=== PATIENT | female | born 1980 ===

== ENCOUNTER → 2019-03-23 | Outpatient (CLI) | payer MEDICAID ==
[2019-03-23 09:23] VITALS: BP 113/67; PULSE 68; TEMP 98.2; BMI 43.9
--- NOTE | 2019-03-23 09:41 | P.HPBAR ---
Bariatric H&P - History & Physicial H&P Date: 03/23/19 History & Physicial: Visit/CC: initial consult Patient initial contact: Initial weight: Initial weight in pounds: Height: 4 ft 11.75 in Initial BMI: Last weight: Current weight: 101.106 kg Current weight in pounds: 222.90 Current BMI: 43.9 [place] body weight (based on NIH guidelines): 44.792 kg Excess body weight loss: The patient is a 38 year-old F who presents for Bariatric Assessment. HPI: She is looking into the sleeve gastrectomy. Highest weight at present. She has tried Adipex, Isogenex for weight loss. She lost down to 138 pounds of 45 pounds and she has regained her weight. Her mother and sister also has trouble. She has occassional heartburn. No gallbladder. She in the past had pancreatitis with Amylase and Lipase of 2000. She comes from [place]. Has complete hysterectomy. No stomach or esophageal cancer. ABDOMEN ASSESSMENT: 1. Morbid obesity PLAN: 1. She is looking into the sleeve 2. Needs labs 3. Bilateral edema and lower back Past Medical History Past Medical History: Sleep Apnea/CPAP/BIPAP Additional Past Medical History / Comment(s): varicose veins History of Any Multi-Drug Resistant Organisms: None Reported Past Surgical History: Section, Cholecystectomy, Hysterectomy Additional Past Surgical History / Comment(s): c section x 2 varicose vein surgery Past Anesthesia/Blood Transfusion Reactions: No Reported Reaction Past Psychological History: Anxiety Smoking Status: Former smoker Past Alcohol Use History: None Reported Additional Past Alcohol Use History / Comment(s): quit 2008 Past Drug Use History: None Reported Surgical - Exam Vital Signs Temp Pulse BP 98.2 F 68 113/67 03/23/19 09:15 03/23/19 09:15 03/23/19 09:15 Bariatric Checklist Checklist: Plan: Checklist: EGD: 1. Hiatal hernia: 2. H. Pylori: HgbA1c: Vitamin D: Smoking: Former smoker Primary care physician referral: dr acosta Psychiatry clearance: Cardiology clearance: Sleep study: Diet journal: VTE risk score: VTE risk level: Rehab needs at discharge:
[2019-03-23 10:56] LABS: HCT 40.8 % (34.0-46.0); HGB 13.5 gm/dL (11.4-16.0); MCH 29.6 pg (25.0-35.0); MCHC 33.1 g/dL (31.0-37.0); MCV 89.6 fL (80.0-100.0); Mean Platelet Volume 7.6; Platelet Count 250 k/uL (150-450); RBC 4.55 m/uL (3.80-5.40); RDW 13.4 % (11.5-15.5); WBC 7.8 k/uL (3.8-10.6)
[2019-03-23 11:01] LABS: INR 0.9 (<1.2); Partial Thromboplastin Time 25.2 sec (22.0-30.0); Prothrombin Time 9.8 sec (9.0-12.0)
[2019-03-23 17:20] LABS: Albumin 4.3 g/dL (3.80-4.90); Albumin/Globulin Ratio 2.15 (1.60-3.17); Anion Gap 5.4 mmol/L (4.00-12.00); Carbon Dioxide 26.6 mmol/L (21.6-31.8); Iron Saturation 32.84 (12.00-45.00); LDL Cholesterol,Calculated 74.8 mg/dL (0.0-131.0); Magnesium 1.8 mg/dL (1.5-2.4); Total Bilirubin 0.4 mg/dL (0.3-1.2); Total Protein 6.3 g/dL (6.2-8.2); VLDL Calculation 20.2 mg/dL (5.00-40.00)
[2019-03-23 17:31] LABS: Vitamin D 25 Hydroxy 21.3 ng/mL (30.0-100.0)
[2019-03-23 17:35] LABS: Folate, Serum 9.4 ng/mL
[2019-03-23 17:47] LABS: Parathyroid Hormone Intact 57.2 pg/mL (14.0-72.0)
[2019-03-23 18:57] LABS: Hemoglobin A1C 4.9 % (4.0-6.0)
[2019-03-24 12:13] LABS: Zinc, Serum 77 ug/dL (60-130)
== END | disposition home or self-care (01) ==
LOC: BARWHC3 08:57
PROVIDERS: ATTEND Surgery Plastic and Reconstructive Surgery
DX: E66.01 Morbid (severe) obesity due to excess calories (principal); E21.1 Secondary hyperparathyroidism, not elsewhere classified; E89.1 Postprocedural hypoinsulinemia; D50.9 Iron deficiency anemia, unspecified; K90.9 Intestinal malabsorption, unspecified; E55.9 Vitamin D deficiency, unspecified; K76.9 Liver disease, unspecified; N19 Unspecified kidney failure; K50.90 Crohn's disease, unspecified, without complications; Z68.41 Body mass index [BMI] 40.0-44.9, adult; Z87.891 Personal history of nicotine dependence; Z90.49 Acquired absence of other specified parts of digestive tract
CPT/HCPCS: 80053; 80061; 82306; 82525; 82607; 82728; 82746; 83036; 83540; 83550; 83735; 83970; 84100; 84134; 84255; 84425; 84443; 84590; 84630; 85027; 85610; 85730; 93005; 99211

== ENCOUNTER 2019-06-12 10:58 | Day surgery (SDC) | payer MEDICAID ==
[2019-06-08 11:09] VITALS: BMI 44.4
--- NOTE | 2019-06-12 07:05 | P.GSHP ---
History of Present Illness H&P Date: 06/12/19 CHIEF COMPLAINT: GERD HISTORY OF PRESENT ILLNESS: The patient is a 39-year-old female who presents reports gastroesophageal reflux disease. Upper endoscopy was offered for further evaluation and management. PAST MEDICAL HISTORY: Please see list. PAST SURGICAL HISTORY: Please see list. MEDICATIONS: Please see list. ALLERGIES: Please see list. SOCIAL HISTORY: No illicit drug use FAMILY HISTORY: No reports of Crohn disease or ulcerative colitis. REVIEW OF ORGAN SYSTEMS: CONSTITUTIONAL: No reports of fevers or chills. GI: Denies any blood in stools or constipation. PHYSICAL EXAM: VITAL SIGNS: Stable GENERAL: Well-developed and pleasant in no acute distress. HEENT: No scleral icterus. Extraocular movements grossly intact. Moist buccal mucosa. NECK: Supple without lymphadenopathy. CHEST: Unlabored respirations. Equal bilateral excursions. CARDIOVASCULAR: Regular rate and rhythm. Distal 2+ pulses. ABDOMEN: Soft, nondistended. MUSCULOSKELETAL: No clubbing, cyanosis, or edema. ASSESSMENT: 1. Gastroesophageal reflux disease PLAN: 1. Recommend proceeding with an upper endoscopy Past Medical History Past Medical History: GERD/Reflux, Sleep Apnea/CPAP/BIPAP Additional Past Medical History / Comment(s): varicose veins History of Any Multi-Drug Resistant Organisms: None Reported Past Surgical History: Section, Cholecystectomy, Hysterectomy Additional Past Surgical History / Comment(s): c section x 2 , varicose vein surgery Past Anesthesia/Blood Transfusion Reactions: No Reported Reaction Smoking Status: Former smoker - Past Family History Mother Family Medical History: No Reported History Medications and Allergies Home Medications Medication Instructions Recorded Confirmed Type buPROPion HCL [Wellbutrin SR] 150 mg PO DAILY 03/23/19 06/08/19 History Allergies Allergy/AdvReac Type Severity Reaction Status Date / Time cefaclor [From [facility]] Allergy Anaphylaxis Verified 06/08/19 10:55
[~2019-06-12 10:58] MED LIST: LIDOCAINE 1% 20 ML VIAL (10MG/ML) FOR IV START INTRADERMA PRN
[2019-06-12 11:15] VITALS: TEMP 97.4
[2019-06-12] MEDS: LACTATED RINGERS 1,000 ML IV SCH ×2 (11:22→11:54)
[2019-06-12] MEDS ORDERED: LIDOCAINE 1% INJ 10MG/ML (20 ML MDV) ONE (11:57)
[2019-06-12] MEDS ORDERED: PROPOFOL 10 MG/ML 20 ML VIAL IV ONE (11:57)
--- NOTE | 2019-06-12 12:17 | P.PCN ---
Date of Procedure: 06/12/19 Description of Procedure: PREOPERATIVE DIAGNOSIS: Gastroesophageal reflux disease. Morbid obesity. POSTOPERATIVE DIAGNOSIS: Morbid obesity. Gastritis. Gastroesophageal reflux disease with erosive esophagitis, severe Diaphragmatic hiatal hernia OPERATION: Esophagogastroduodenoscopy with biopsies along antrum and distal esophagus SURGEON: Asya Cavanaugh MD ANESTHESIA: MAC. INDICATIONS: The patient is a 39-year-old female who presents with a history of reflux disease. Benefits and risks of the procedure were described. Informed consent was obtained. DESCRIPTION: The patient was brought into the endoscopy suite and laid in the left lateral decubitus position. An Olympus gastroscope was passed along the posterior oropharynx down to the distal esophagus where the squamocolumnar junction was encountered at 32 cm from the incisors. The stomach was entered and no bile reflux was found. Additional findings are listed below. Biopsies with cold forceps were obtained of the antrum and distal esophagus. The first through third portion of the duodenum was examined and unremarkable. Retroflexion of the scope confirmed Hill grade 3 lower esophageal valve. The squamocolumnar junction demonstrated LA grade C erosive esophagitis. The stomach was desufflated. The patient tolerated the procedure well. FINDINGS: Squamocolumnar junction 32 cm from the incisors. Diaphragmatic hiatus at 36 cm. Hiatal hernia, 4 cm Hill grade 3 lower esophageal valve. LA grade C erosive esophagitis. No active duodenitis. Chronic gastritis RECOMMENDATIONS: Upper endoscopy as needed. Recommend immediate start of proton pump inhibitor for severe erosive esophagitis Plan - Discharge Summary Discharge Rx Participant: Yes New Discharge Prescriptions: New Omeprazole 40 mg PO DAILY #30 capsule. No Action buPROPion HCL [Wellbutrin SR] 150 mg PO DAILY Discharge Medication List buPROPion HCL [Wellbutrin SR] 150 mg PO DAILY 03/23/19 [History] Omeprazole 40 mg PO DAILY #30 capsule. 06/12/19 [Rx] Follow up Appointment(s)/Referral(s): [facility] [NON-STAFF] - 06/28/19 Patient Instructions/Handouts: Esophagitis (DC), Diet for Stomach Ulcers and Gastritis (ED), Gastroesophageal Reflux Disease (DC) Discharge Disposition: HOME SELF-CARE
[2019-06-12 12:53] VITALS: BP 116/80; PULSE 76; RESP 16
== END 2019-06-12 12:50 | disposition home or self-care (01) ==
LOC: ORWHC2ENDO 10:58
PROVIDERS: ATTEND Surgery Plastic and Reconstructive Surgery
DX: K21.0 Gastro-esophageal reflux disease with esophagitis (principal); K29.50 Unspecified chronic gastritis without bleeding; K44.9 Diaphragmatic hernia without obstruction or gangrene; E66.01 Morbid (severe) obesity due to excess calories; Z68.41 Body mass index [BMI] 40.0-44.9, adult; G47.33 Obstructive sleep apnea (adult) (pediatric); Z87.891 Personal history of nicotine dependence; Z90.49 Acquired absence of other specified parts of digestive tract; Z90.710 Acquired absence of both cervix and uterus; Z79.899 Other long term (current) drug therapy; Z88.1 Allergy status to other antibiotic agents
CPT/HCPCS: 43239; 88305; J2001; J2704

== ENCOUNTER → 2019-06-28 | Outpatient (CLI) | payer MEDICAID ==
[2019-06-28 13:48] VITALS: BP 104/67; PULSE 80; TEMP 98.6; BMI 43.7
--- NOTE | 2019-06-28 14:52 | P.PN ---
Subjective Progress Note Date: 06/28/19 DATE OF SERVICE: 06/28/2019 CHIEF COMPLAINT: Morbid obesity HISTORY OF PRESENT ILLNESS: Tonia Girard is a 39-year-old female who comes with lifelong morbid obesity. She comes in looking into the sleeve gastrectomy. As a result of her morbid obesity, she has developed osteoarthritis of the lower back, depressive disorder. She had completed an upper endoscopy with findings now of new Álvarez's esophagus including severe gastroesophageal reflux disease. She has been on omeprazole and has moderate improvement of her symptoms. No reports of hematemesis. At height of 4 feet 11.75 inches, her ideal body weight is 123 pounds. She comes in 222 pounds unchanged from her last visit 3 months ago. Her body mass index is 43.9. She is 99 pounds overweight. PAST MEDICAL HISTORY: 1. Morbid obesity due to excess calories 2. Body mass index of 43.9, initial 3. Osteoarthritis of the lower back. 4. Depressive disorder 5. Bilateral lower extremity edema 6. Obstructive sleep apnea 7. Generalized anxiety disorder PAST SURGICAL HISTORY: 1. section 2. Cholecystectomy 3. Hysterectomy HOME MEDICATIONS: Home Medications Medication Instructions Recorded Confirmed buPROPion HCL [Wellbutrin SR] 150 mg PO DAILY 03/23/19 03/23/19 ALLERGIES: Allergies Allergy/AdvReac Type Severity Reaction Status Date / Time cefaclor [From [facility]] Allergy Anaphylaxis Verified 03/23/19 09:24 SOCIAL HISTORY: Past tobacco use. FAMILY HISTORY: No family history of ulcerative colitis disease or Crohn's disease. Family history of morbid obesity. No lupus in the family. No reports of stomach or esophageal cancer. REVIEW OF ORGAN SYSTEMS: CONSTITUTIONAL: At height of 4 feet 11.75 inches, her ideal body weight is 123 pounds. She comes in 222 pounds. Her body mass index is 43.9. HEENT: Denies any active troubles with vision or hearing. ENDOCRINE: No diabetes. No hypothyroidism. CARDIOVASCULAR: No past reports of palpitations or heart attacks or chest pain. RESPIRATORY: Has daytime somnolence. No asthma. GASTROINTESTINAL: Denies any bright red blood per rectum. No diarrhea. No constipation. MUSCULOSKELETAL: Has lower back pain and joint pain. Has osteoarthritis of the knees. History of bilateral lower extremity edema. NEURO: No headaches. No seizure disorders. PSYCH: Has depression. No suicidal ideation. RHEUMATOLOGIC: No lupus. No rheumatoid arthritis. HEMATOLOGIC: Denies any abnormal bleeding or bruising. No personal history of DVTs. On anticoagulant. SKIN: No rash. No skin cancer. PHYSICAL EXAM: VITAL SIGNS: Height 4 foot 11.75 inches, weight 222 pounds. BMI 43.7 Vital Signs Temp 98.6 F 06/28/19 13:46 Pulse 80 06/28/19 13:46 Resp BP 104/67 06/28/19 13:46 Pulse Ox GENERAL: Well-developed in no acute distress. HEENT: No scleral icterus. Extraocular movements grossly intact. Hears conv ersational speech. No nasal drainage. NECK: Supple without lymphadenopathy. CHEST: Nonlabored respirations with equal bilateral excursions. CARDIOVASCULAR: Regular rate and regular rhythm. Distal 2+ pulses. ABDOMEN: Obese, soft, nontender, nondistended. MUSCULOSKELETAL: No clubbing, cyanosis. Gross strength 5/5 distal lower extremities. NEURO: No focal or lateralizing signs. Cranial nerves 2 through 12 grossly within normal limits. PSYCH: Appropriate affect. Alert and oriented to person, place and time. SKIN: Good skin turgor. Well perfused. LABS: Vitamin A is low Vitamin D is low Pre-albumin is low EKG reviewed - borderline EGD FINDINGS: Squamocolumnar junction 32 cm from the incisors. Diaphragmatic hiatus at 36 cm. Hiatal hernia, 4 cm Hill grade 3 lower esophageal valve. LA grade C erosive esophagitis. No active duodenitis. Final Pathologic Diagnosis A. GASTRIC ANTRUM, BIOPSY: Essentially normal gastric mucosa. Helicobacter organisms are not identified on routine H+E stained sections. B. ESOPHAGUS, BIOPSY: Squamogastric junction mucosa with microscopic goblet cell metaplasia suggestive of Barretts esophagus if in the proper clinical setting. Negative for dysplasia. ASSESSMENT: 1. Morbid obesity due to excess calories 2. Body mass index of 43.9, initial 3. Osteoarthritis of the lower back. 4. Depressive disorder 5. Bilateral lower extremity edema 6. Obstructive sleep apnea 7. Generalized anxiety disorder 8. Álvarez's esophagus 9. Gastroesophageal reflux disease 10. Vitamin D deficiency 11. Vitamin A deficiency 12. Borderline EKG 13. Diaphragmatic hiatal hernia PLAN: 1. Recommend hiatal hernia repair for severe reflux 2. Continue omeprazole for Álvarez's 3. She is looking into the sleeve gastrectomy were options were described. She understands that with sleeve gastrectomy, she is at elevated risk for worsening gastroesophageal reflux disease. 4. DVT prophylaxis 5. Antibiotic prophylaxis 6. Recommend cardiac assessment for borderline EKG 7. She is at elevated risk for complications with borderline EKG including morbid obesity 8. Vitamin D supplement 50,000 units weekly 9. Vitamin A supplement 8000 units daily 10. 4 low prealbumin levels, recommend protein intake over 60-65 g daily Objective - Vital Signs Vital signs: Vital Signs Temp 98.6 F 06/28/19 13:46 Pulse 80 06/28/19 13:46 Resp BP 104/67 06/28/19 13:46 Pulse Ox Intake & Output 06/27/19 06/28/19 06/28/19 18:59 06:59 18:59 Weight 100.698 kg
== END ==
LOC: BARWHC3 13:20
PROVIDERS: ATTEND Surgery Plastic and Reconstructive Surgery
DX: E66.01 Morbid (severe) obesity due to excess calories (principal); Z79.899 Other long term (current) drug therapy
CPT/HCPCS: 99211

== ENCOUNTER 2019-09-29 09:55 | Inpatient (IN) | payer MEDICAID ==
[2019-10-27] MEDS ORDERED: HEPARIN SODIUM,PORCINE 5,000 UNIT/ML 1 ML VIAL SQ ONE (05:00)
[2019-10-27] MEDS ORDERED: CLINDAMYCIN 900 MG in DEXTROSE 5% IN WATER 50 ML IVPB ONE ×2 (05:00)
[2019-10-27] MEDS ORDERED: LEVOFLOXACIN 500MG-D5W PMX 500 MG in DEXTROSE/WATER 1 100ML.BAG IVPB ONE (05:00)
[2019-10-27] MEDS ORDERED: ONDANSETRON 4 MG/2 ML VIAL IVP ONE (06:09)
[2019-10-27] MEDS ORDERED: LIDOCAINE 1% 20 ML VIAL (10MG/ML) FOR IV START INTRADERMA PRN (06:09)
[2019-10-27] MEDS ORDERED: DEXAMETHASONE SOD PHOSPHATE 10 MG/ML 1 ML VIAL IV ONE ×2 (06:09→17:00)
[2019-10-27] MEDS ORDERED: METOCLOPRAMIDE 5 MG/ML 2 ML VIAL IVP PRN (06:09)
[2019-10-27] MEDS ORDERED: SCOPOLAMINE 1.5MG/72HR PATCH TRANSDERM ONE (06:09)
[2019-10-27] MEDS ORDERED: PANTOPRAZOLE 40 MG/10 ML VIAL IV STA (10:55)
--- NOTE | 2019-10-27 10:57 | P.GSHP ---
History of Present Illness H&P Date: 10/27/19 CHIEF COMPLAINT: Paraesophageal hiatal hernia with gastroesophageal reflux disease. HISTORY OF PRESENT ILLNESS: The patient is a 39-year-old female who presents with paraesophageal hiatal hernia. She has completed an upper endoscopy workup. Now she presents for surgical intervention. PAST MEDICAL HISTORY: Please see list. PAST SURGICAL HISTORY: Please see list. MEDICATIONS: Please see list. ALLERGIES: Please see list. SOCIAL HISTORY: No illicit drug use FAMILY HISTORY: No reports of Crohn disease or ulcerative colitis. REVIEW OF ORGAN SYSTEMS: CONSTITUTIONAL: No reports of fevers or chills. GI: Denies any blood in stools or constipation. PHYSICAL EXAM: VITAL SIGNS: Stable GENERAL: Well-developed pleasant and in no acute distress. HEENT: No scleral icterus. Extraocular movements grossly intact. Moist buccal mucosa. NECK: Supple without lymphadenopathy. CHEST: Unlabored respirations. Equal bilateral excursions. CARDIOVASCULAR: Regular rate and rhythm. Distal 2+ pulses. ABDOMEN: Soft, nondistended. No peritoneal signs. MUSCULOSKELETAL: No clubbing, cyanosis, or edema. SKIN: Well-perfused. Good skin turgor. ASSESSMENT: 1. Diaphragmatic paraesophageal hiatal hernia with severe gastroesophageal reflux disease. PLAN: 1. Recommend proceeding with a robotic paraesophageal hiatal hernia with possible mesh. 2. Benefits and risks of surgical intervention was discussed including possibility of open technique. 3. Inpatient hospitalization recommended of 2 nights 4. DVT prophylaxis. 5. Antibiotic prophylaxis. 6. She has also completed a very low caloric high-protein diet to address underlying hepatomegaly. Past Medical History Past Medical History: Asthma, GERD/Reflux Additional Past Medical History / Comment(s): Hx heart murmur as a child - resolved. Hx Asthma as a child - resolved. Barretts Esophagus, Hiatal Hernia. History of Any Multi-Drug Resistant Organisms: None Reported Past Surgical History: Section, Cholecystectomy, Hysterectomy Additional Past Surgical History / Comment(s): Exploratory Laparotomy, Lysis of Adhesions, Section X2, varicose vein surgery, EGD. Past Anesthesia/Blood Transfusion Reactions: No Reported Reaction Additional Past Anesthesia/Blood Transfusion Reaction / Comment(s): Cries after anesthesia. Past Psychological History: Anxiety, Depression Smoking Status: Former smoker Past Alcohol Use History: Occasional Additional Past Alcohol Use History / Comment(s): STARTED SMOKING AT AGE 12, QUIT IN 2007, SMOKED 1PPD. Past Drug Use History: None Reported - Past Family History Mother Family Medical History: No Reported History Medications and Allergies Home Medications Medication Instructions Recorded Confirmed Type Multivitamins, Thera [Multivitamin 1 tab PO DAILY 10/23/19 10/23/19 History (formulary)] Allergies Allergy/AdvReac Type Severity Reaction Status Date / Time cefaclor [[facility]] Allergy Anaphylaxis Verified 10/23/19 14:44
[2019-10-27] MEDS: LACTATED RINGERS 1,000 ML IV SCH (13:12)
[2019-10-27] MEDS: CHLORHEXIDINE GLUCONATE 15 ML CUP MUCOUS MEM ONE ×2 (13:13→13:25)
[2019-10-27 13:24] LABS: Basophils % (A) 1 %; Eosinophils # (A) 0.2 k/uL (0-0.7); Eosinophils % (A) 3 %; HCT 37.7 % (34.0-46.0); HGB 12.6 gm/dL (11.4-16.0); Lymphocytes # (A) 2.1 k/uL (1.0-4.8); Lymphocytes % (A) 27 %; MCH 29.4 pg (25.0-35.0); MCHC 33.5 g/dL (31.0-37.0); Mean Platelet Volume 7.9; Monocytes # (A) 0.5 k/uL (0-1.0); Monocytes % (A) 6 %; Neutrophils % (A) 63 %; Platelet Count 225 k/uL (150-450); RBC 4.29 m/uL (3.80-5.40); RDW 12.8 % (11.5-15.5); WBC 7.9 k/uL (3.8-10.6)
[2019-10-27] MEDS ORDERED: GLYCOPYRROLATE 0.2 MG/ML 2 ML VIAL ONE (13:28)
[2019-10-27] MEDS ORDERED: KETOROLAC 30 MG/ML 1 ML VIAL ONE (13:28)
[2019-10-27] MEDS ORDERED: fentaNYL (PF) 50 MCG/ML 2 ML AMP ONE (13:28)
[2019-10-27] MEDS ORDERED: PROPOFOL 10 MG/ML 20 ML VIAL IV ONE (13:28)
[2019-10-27] MEDS ORDERED: LIDOCAINE 1% INJ 10MG/ML (20 ML MDV) ONE (13:28)
[2019-10-27] MEDS ORDERED: NEOSTIGMINE 1 MG/ML 10 ML VIAL ONE (13:28)
[2019-10-27] MEDS ORDERED: MIDAZOLAM 2 MG/2 ML VIAL ONE (13:28)
[2019-10-27] MEDS ORDERED: ROCURONIUM BROMIDE 10 MG/ML 10 ML VIAL IV ONE (13:28)
[2019-10-27] MEDS ORDERED: SUCCINYLCHOLINE CHLORIDE 100 MG/5 ML SYR IV ONE (13:28)
[2019-10-27] MEDS ORDERED: BUPIVACAINE (PF) 0.25% 30 ML VIAL SQ ONE (13:57)
[2019-10-27] MEDS ORDERED: LACTATED RINGERS 1,000 ML IV ONE (14:46)
[2019-10-27] MEDS ORDERED: NALOXONE 0.4 MG/ML 1 ML VIAL IV PRN (15:42)
[2019-10-27] MEDS ORDERED: diphenhydrAMINE 50 MG/ML 1 ML VIAL IVP PRN (15:42)
[2019-10-27] MEDS ORDERED: SCOPOLAMINE 1.5MG/72HR PATCH TRANSDERM STA (15:46)
--- NOTE | 2019-10-27 15:57 | P.OP ---
Date of Procedure: 10/27/19 Description of Procedure: SURGEON: CHRISTOPHER BENNETT MD PREOPERATIVE DIAGNOSES: 1. Symptomatic paraesophageal diaphragmatic hiatal hernia. 2. Gastroesophageal reflux disease. 3. Morbid obesity due to excess calories, BMI 41.5 4. Erosive esophagitis POSTOPERATIVE DIAGNOSES: 1. Symptomatic paraesophageal diaphragmatic hiatal hernia. 2. Gastroesophageal reflux disease. 3. Morbid obesity due to excess calories, BMI 41.5 4. Erosive esophagitis 5. Hepatomegaly OPERATION: 1. Robotic-assisted da Hillary Xi laparoscopic repair of incarcerated paraesophageal hiatal hernia, 5 x 5 cm, with [employer] Biopatch A 8 x 8 cm. 2. Intraoperative esophagogastroduodenoscopy 3. Placement of 56-Venezuelan bougie ANESTHESIA: General with local anesthetic. ESTIMATED BLOOD LOSS: 10 mL SPECIMENS REMOVED: None COMPLICATIONS: None. Condition: stable Disposition: floor FINDINGS: 1. Midline incarcerated paraesophageal hiatal hernia 5 x 5 cm 2. Intraoperative upper endoscopy confirms complete closure of hiatal hernia from Hill grade 3 to Hill grade 1 3. Hepatomegaly INDICATIONS: The patient is a 39-year-old female who presents with regurgitation, gastroesophageal reflux disease poorly controlled despite medications, and a symptomatic diaphragmatic hiatal hernia. Preoperative workup including upper endoscopy demonstrated a Hill grade 3 lower esophageal valve. Given the severity of symptoms, she had elected for surgical intervention. Benefits and risks including bleeding, infection, recurrence, dysphagia, injury to the lung, need for further surgery was described at length. Informed consent was obtained. DESCRIPTION: The patient was brought into the operating room and placed in supin e position. Preoperatively she had received heparin subcutaneously for DVT prophylaxis. After general induction, the abdomen was prepped and draped in standard sterile fashion. The patient had previously voided prior to coming to the operating room. Ioban draping was placed along the abdomen. A timeout protocol was confirmed with the surgical team, for which the patient's name, procedure to be performed including DVT prophylaxis with bilateral SCDs, and preoperative antibiotics were also confirmed. A robotic da Hillary Xi system was prepped and primed. At 15 cm from the xiphoid to just below the umbilicus, proposed port sites were marked with indelible marker along the left axillary line, left mid-clavicular line with each ports were marked 10 cm from each other. A 5 mm 0 degrees laparoscopic trocar entry was performed along the left upper quadrant. The abdomen was insufflated to 15 mmHg pressure was tolerated well. Diagnostic laparoscopy demonstrated no injury to bowel, viscera, or mesentery. Moderate hepatomegaly was identified. Next, one 8 mm robotic port was placed along the right upper abdomen. An 8-mm port was were placed along the left lateral abdominal wall. The camera 8-mm port was maintained along the epigastrium via the hernia defect. Another 12 mm port was placed along the left upper abdominal wall after exchanging the 5 mm port. Please note that the ports were placed at least 20 cm away from the target anatomy. Care was taken to check that each robotic arm were safely away from collision with the bed or the patient. At the epigastrium, a medium sized Hilda liver retractor was placed under direct visualization with the Iron Blanket Maker placed under the right shoulder of the patient. All robotic arms were used. The patient was repositioned in reverse Trendelenburg position at 20-degrees after lowering the bed. The robot was docked above the left side of the patient. Using a grasper for arm 3, a grasper for arm 1, including vessel sealer for arm 2, the robotic system was docked and primed as described. Instruments were interchanged by the spa assistant manager. I had sat at the console. The gastrohepatic ligament was cleaved using a vessel sealer. Next, the phrenoesophageal ligament was mobilized and the distal esophagus was mobilized circumferentially. The left and right crura was identified. Circumferentially, the hernia sac was excised and brought into the peritoneal cavity. Moderate dissection into the mediastinum was performed to release the esophagus into the abdominal cavity. The paraesophageal hiatal hernia sac was also incised and divided from the esophagus. Care was taken to avoid any gastrotomy. The measured defect was consistent with 5 cm axial length and 5 cm in width. After dissection, the distal esophagus of 3 cm was brought into the abdominal cavity. Once the hiatus and crura was dissected, nonabsorbable2-0 VLOC suture was placed to reapproximate the diaphragmatic hiatus posteriorly. To buttress the repair, a [employer] Biopatch A was prepared along the back table and cut in half of a olivares-hole fashion as to reinforce the repair as an underlay. The mesh was placed along the crural repair and tagged using horizontal mattress sutures using 2-0 VLOC. I went to the head of the bed to perform intraoperative esophagogastroduodenoscopy and placement of a 56Fr bougie. A 56-Venezuelan bougie had easily passed from the esophagus into the stomach with minimal resistance and removed. An Olympus gastroscope was passed through posterior oropharynx into the stomach. Retroflexion of the scope confirmed a Hill grade 1 lower esophageal valve. Severe LA grade C erosive esophagitis was identified over 3 cm in length erosions involving 4 columns. The stomach had been desufflated. No evidence of leaks were found of the esophagus or stomach. The squamocolumnar junction and hiatus was at 30 cm from the incisors consistent with her stature of 4 foot 11. The GI tract with desufflated. This concluded the endoscopic portion of the case. The robot was undocked from the patient. I re-scrubbed into the case. All instruments and pneumoperitoneum and specimens were evacuated from the abdominal cavity. Incisions were reapproximated using 4-0 Monocryl in an interrupted subcuticular fashion. Liquid glue was applied to the skin. Local anesthetic was infiltrated in all wounds for postop analgesia. Multiple intra-abdominal films were obtained. At the end of the procedure, needle, sponge, and instrument count was verified correct by the rn medical surgical. The patient had tolerated the procedure well and was taken to the postanesthesia unit in stable condition. Intraoperative films were reviewed with the patient's family who was pleased with the level of care. Console time 37 minutes.
[2019-10-27] MEDS: HYDROmorphone 0.5 MG/0.5 ML SYRINGE IVP PRN ×2 (16:02→16:09)
[2019-10-27] MEDS: KETOROLAC 30 MG/ML 1 ML VIAL IVP SCH ×3 (16:09→19:12)
[2019-10-27] MEDS: ALBUTEROL NEBULIZED 2.5 MG/3 ML INHALATION SCH ×2 (16:33→19:32)
[2019-10-27] MEDS ORDERED: HYOSCYAMINE ORAL DROPS 1.875 MG/15 ML BOTTLE PO SCH (18:00)
[2019-10-27] MEDS: SIMETHICONE 40 MG/0.6 ML DROPS 2,000 MG/30 ML BOTTLE PO SCH (19:15)
[2019-10-27] MEDS: DEXAMETHASONE SOD PHOSPHATE 4 MG/ML 1 ML VIAL IV SCH (19:16)
[2019-10-27] MEDS: ONDANSETRON 4 MG/2 ML VIAL IVP SCH (19:24)
[2019-10-27] MEDS: METOCLOPRAMIDE 5 MG/ML 2 ML VIAL IVP SCH (19:25)
[2019-10-27] MEDS: ACETAMINOPHEN IV (For NPO) 1,000 MG in EMPTY BAG 1 BAG IVPB SCH (19:30)
[2019-10-27] MEDS: 0.9% NACL WITH KCL 20 MEQ/L 1,000 ML IV SCH (20:16)
[2019-10-28] MEDS: ACETAMINOPHEN IV (For NPO) 1,000 MG in EMPTY BAG 1 BAG IVPB SCH ×2 (01:10→06:06)
[2019-10-28] MEDS: 0.9% NACL WITH KCL 20 MEQ/L 1,000 ML IV SCH ×2 (01:10→05:53)
[2019-10-28] MEDS: DEXAMETHASONE SOD PHOSPHATE 4 MG/ML 1 ML VIAL IV SCH ×2 (01:11→05:46)
[2019-10-28] MEDS: METOCLOPRAMIDE 5 MG/ML 2 ML VIAL IVP SCH ×2 (01:11→05:47)
[2019-10-28] MEDS: ONDANSETRON 4 MG/2 ML VIAL IVP SCH ×2 (01:11→05:46)
[2019-10-28] MEDS: SIMETHICONE 40 MG/0.6 ML DROPS 2,000 MG/30 ML BOTTLE PO SCH ×2 (01:25→05:43)
[2019-10-28] MEDS: KETOROLAC 30 MG/ML 1 ML VIAL IVP SCH ×2 (01:25→05:46)
[2019-10-28] MEDS: LACTATED RINGERS 1,000 ML IV SCH (05:43)
[2019-10-28 06:56] LABS: Basophils % (A) 0 %; Eosinophils % (A) 0 %; HGB 13.5 gm/dL (11.4-16.0); Lymphocytes % (A) 9 %; MCHC 33.8 g/dL (31.0-37.0); MCV 88.6 fL (80.0-100.0); Mean Platelet Volume 8.2; Monocytes # (A) 0.2 k/uL (0-1.0); Monocytes % (A) 2 %; Neutrophils # (A) 9.6 k/uL (1.3-7.7); Neutrophils % (A) 88 %; Platelet Count 252 k/uL (150-450); RBC 4.51 m/uL (3.80-5.40); RDW 12.7 % (11.5-15.5); WBC 10.8 k/uL (3.8-10.6)
[2019-10-28 07:10] LABS: African American GFR (CKD) >90 (>60 ml/min/1.73 sqM); Anion Gap 10 mmol/L; Blood Urea Nitrogen 8 mg/dL (7-17); Carbon Dioxide 18 mmol/L (22-30); Chloride 112 mmol/L (98-107); Non-African American GFR(CKD) >90 (>60 ml/min/1.73 sqM); Phosphorus 3.1 mg/dL (2.5-4.5); Potassium 4.4 mmol/L (3.5-5.1); Sodium 140 mmol/L (137-145)
[2019-10-28] MEDS: ALBUTEROL NEBULIZED 2.5 MG/3 ML INHALATION SCH ×2 (07:43→11:22)
[2019-10-28] MEDS ORDERED: 0.9% NACL WITH KCL 20 MEQ/L 1,000 ML IV SCH (08:00)
--- NOTE | 2019-10-28 08:05 | FL ---
EXAMINATION TYPE: FL esophagus cervic/pharynx DATE OF EXAM ORDERED: 10/28/2019 7:55 AM HISTORY: Geeta fundoplication. COMPARISON: None. FINDINGS: The patient drank contrast with ease. There was prompt egress of contrast from the esophag us into the stomach. There is no evidence of extravasation. No significant free air is seen. The liga ment of Treitz is in the normal location. Note is made of a previous cholecystectomy. IMPRESSION: STATUS POST GEETA FUNDOPLICATION.
[2019-10-28 08:45] VITALS: BP 108/69; RESP 16; TEMP 97.7
[2019-10-28] MEDS ORDERED: PANTOPRAZOLE 40 MG/10 ML VIAL IV SCH (09:00)
[2019-10-28] MEDS ORDERED: ENOXAPARIN 40 MG/0.4 ML SYRINGE SQ SCH (09:00)
--- NOTE | 2019-10-28 10:28 | P.DS ---
Providers Date of admission: 10/27/19 12:06 Expected date of discharge: 10/28/19 Attending physician: Asya Cavanaugh Primary care physician: [facility] Course: Patient doing well today. Underwent repair hiatal hernia yesterday. Upper GI shows no leak or obstruction. She is tolerating liquids. She would like to go home today. Incision is clean and dry, minimal tenderness. We'll discharge today. Follow-up with Dr. Webber 1 week. Continue full liquids. Plan - Discharge Summary Discharge Rx Participant: Yes New Discharge Prescriptions: New Bisacodyl [Dulcolax] 5 mg PO DAILY PRN #10 tablet. PRN Reason: Constipation Simethicone 40 mg/0.6 ml Drops [Mylicon Drops] 40 mg PO PCHS PRN #30 ml PRN Reason: Gas Omeprazole 40 mg PO DAILY #30 capsule. Acetaminophen Oral Susp [Tylenol Oral Susp] 500 mg PO Q4-6H PRN #400 ml PRN Reason: Pain Ondansetron Odt [Zofran Odt] 4 mg PO Q8HR PRN #9 tab PRN Reason: Nausea No Action Multivitamins, Thera [Multivitamin (formulary)] 1 tab PO DAILY Discharge Medication List Multivitamins, Thera [Multivitamin (formulary)] 1 tab PO DAILY 10/23/19 [History] Acetaminophen Oral Susp [Tylenol Oral Susp] 500 mg PO Q4-6H PRN #400 ml 10/27/19 [Rx] Bisacodyl [Dulcolax] 5 mg PO DAILY PRN #10 tablet. 10/27/19 [Rx] Omeprazole 40 mg PO DAILY #30 capsule. 10/27/19 [Rx] Ondansetron Odt [Zofran Odt] 4 mg PO Q8HR PRN #9 tab 10/27/19 [Rx] Simethicone 40 mg/0.6 ml Drops [Mylicon Drops] 40 mg PO PCHS PRN #30 ml 10/27/19 [Rx] Follow up [facility]ment(s[facility] [place] (please call to confirm time) Patient Instructions/Handouts: Hiatal Hernia (DC), Laparoscopic Hiatal Hernia Repair (DC) Activity/Diet/Wound Care/Special Instructions: NO lifting over 4 pounds in 4 weeks, November 27. March shower. Drink 64 oz of fluid daily. Continue protein shakes including additional beverages. No straws or carbonated beverages. Liquid diet only. Sugar content should be less than 6 g to avoid dumping syndrome. Take MOM for constipation. CRUSH, OPEN, OR CUT TABLETS LARGER THAN A SIZE OF A TIC TAC Discharge Disposition: HOME SELF-CARE
[2019-10-28 11:26] VITALS: PULSE 52
[2019-10-28] MEDS ORDERED: LEVOFLOXACIN 500MG-D5W PMX 500 MG in DEXTROSE/WATER 1 100ML.BAG IVPB SCH (12:00)
[2019-10-28 13:29] VITALS: BMI 42.5
[2019-10-29] MEDS ORDERED: BISACODYL 5 MG TABLET.DR PO PRN (08:00)
== END 2019-10-28 14:15 | disposition home or self-care (01) | DRG 327 ==
LOC: 2ORMAIN 10-27 12:06 → 4SSUR 10-27 15:32
PROVIDERS: ADMIT Surgery Plastic and Reconstructive Surgery; ATTEND Surgery Plastic and Reconstructive Surgery
PROC: 8E0W4CZ Robotic Assisted Procedure of Trunk Region, Percutaneous Endoscopic Approach (ICD-10-PCS; 2019-10-27)
PROC: 0DJ08ZZ Inspection of Upper Intestinal Tract, Via Natural or Artificial Opening Endoscopic (ICD-10-PCS; 2019-10-27)
PROC: 0BUT4JZ Supplement Diaphragm with Synthetic Substitute, Percutaneous Endoscopic Approach (ICD-10-PCS; principal; 2019-10-27 13:35)
DX: K44.0 Diaphragmatic hernia with obstruction, without gangrene (principal); Z68.41 Body mass index [BMI] 40.0-44.9, adult; E66.01 Morbid (severe) obesity due to excess calories; R16.0 Hepatomegaly, not elsewhere classified; F32.9 Major depressive disorder, single episode, unspecified; F41.9 Anxiety disorder, unspecified; K21.0 Gastro-esophageal reflux disease with esophagitis; K22.70 Barrett's esophagus without dysplasia; Z87.09 Personal history of other diseases of the respiratory system; Z87.891 Personal history of nicotine dependence; Z90.710 Acquired absence of both cervix and uterus; Z90.49 Acquired absence of other specified parts of digestive tract; Z88.1 Allergy status to other antibiotic agents
CPT/HCPCS: 74210; 80051; 82310; 82565; 83735; 84100; 84520; 85025; 94640

== ENCOUNTER → 2019-11-01 | Outpatient (CLI) | payer MEDICAID ==
--- NOTE | 2019-11-01 14:43 | P.PN ---
Subjective Progress Note Date: 11/01/19 DATE OF SERVICE: 11/01/2019 CHIEF COMPLAINT: Morbid obesity HISTORY OF PRESENT ILLNESS: Tonia Girard is a 39-year-old female status post hiatal hernia repair, 10/27/2019 for severe gastroesophageal reflux disease. She is POD 5. She reports no further gastroesophageal reflux disease since her repair. She had severe erosive esophagitis. She has lost 20 pounds. She has history of Álvarez's esophagus. No reports of urinary retention. She reports no pain from surgery. At height of 4 feet 11.75 inches, her ideal body weight is 123 pounds. Her highest weight was 222 pounds, BMI 43.8. She comes in 206 pounds from 222 pounds 4 months ago. She has lost 16 pounds in 4 months. Her body mass index is 40.6. Her lifetime weight loss is 16 pounds. Percent excess weight loss is 17%. She is 83 pounds overweight. PHYSICAL EXAM: VITAL SIGNS: Height 4 foot 11.75 inches, weight 206 pounds. BMI 40.6 Vital Signs Temp 98.1 F 11/01/19 14:54 Pulse 79 11/01/19 14:54 Resp BP 110/79 11/01/19 14:54 Pulse Ox GENERAL: Well-developed in no acute distress. HEENT: No scleral icterus. Extraocular movements grossly intact. Hears conversational speech. No nasal drainage. NECK: Supple without lymphadenopathy. CHEST: Nonlabored respirations with equal bilateral excursions. CARDIOVASCULAR: Regular rate and regular rhythm. Distal 2+ pulses. ABDOMEN: Incisions and intact without hernia. MUSCULOSKELETAL: No clubbing, cyanosis. Gross strength 5/5 distal lower extremities. NEURO: No focal or lateralizing signs. Cranial nerves 2 through 12 grossly within normal limits. PSYCH: Appropriate affect. Alert and oriented to person, place and time. SKIN: Good skin turgor. Well perfused. MISCELLANEOUS: Intra-operative films reviewed in detail ASSESSMENT: 1. Morbid obesity due to excess calories 2. Body mass index of 43.9, initial 3. Osteoarthritis of the lower back. 4. Depressive disorder 5. Bilateral lower extremity edema 6. Obstructive sleep apnea 7. Generalized anxiety disorder 8. Álvarez's esophagus 9. Gastroesophageal reflux disease 10. Diaphragmatic hiatal hernia s/p repair PLAN: 1. Continue Omeprazole for at least 1 month. 2. Will need re-check of her esophagitis
[2019-11-01 14:57] VITALS: BP 110/79; PULSE 79; TEMP 98.1; BMI 40.6
== END ==
LOC: BARWHC3 13:37
PROVIDERS: ATTEND Surgery Plastic and Reconstructive Surgery
DX: E66.01 Morbid (severe) obesity due to excess calories (principal); Z68.41 Body mass index [BMI] 40.0-44.9, adult; M47.9 Spondylosis, unspecified; R60.0 Localized edema; G47.33 Obstructive sleep apnea (adult) (pediatric); K21.9 Gastro-esophageal reflux disease without esophagitis
CPT/HCPCS: 99211

== ENCOUNTER → 2019-12-13 | Outpatient (CLI) | payer MEDICAID ==
[2019-12-13 12:57] VITALS: BP 120/80; PULSE 76; TEMP 98.2; BMI 40.1
--- NOTE | 2019-12-13 13:36 | P.PN ---
Subjective Progress Note Date: 12/13/19 DATE OF SERVICE: 12/13/2019 CHIEF COMPLAINT: Morbid obesity HISTORY OF PRESENT ILLNESS: Tonia Girard is a 39-year-old female status post hiatal hernia repair, 10/27/2019 for severe gastroesophageal reflux disease. She is over 1 month out. She is still on Omeprazole. She notices improvement of her abdominal pain since surgery. She reports having stress due to social stressors. At height of 4 feet 11.75 inches, her ideal body weight is 123 pounds. Her highest weight was 222 pounds, BMI 43.8. She comes in 204 pounds from 206 pounds, 1 month ago. She has lost 2 pounds in 1 month. Her body mass index is down to 40.2. Her lifetime weight loss is 18 pounds. Percent excess weight loss is 19%. She is 81 pounds overweight. PHYSICAL EXAM: VITAL SIGNS: Height 4 foot 11.75 inches, weight 204 pounds. BMI 40.2 Vital Signs Temp 98.2 F 12/13/19 12:54 Pulse 76 12/13/19 12:54 Resp BP 120/80 12/13/19 12:54 Pulse Ox GENERAL: Well-developed in no acute distress. HEENT: No scleral icterus. Extraocular movements grossly intact. Hears conversational speech. No nasal drainage. NECK: Supple without lymphadenopathy. CHEST: Nonlabored respirations with equal bilateral excursions. CARDIOVASCULAR: Regular rate and regular rhythm. Distal 2+ pulses. ABDOMEN: Incisions and intact without hernia. MUSCULOSKELETAL: No clubbing, cyanosis. NEURO: No focal or lateralizing signs. Cranial nerves 2 through 12 grossly within normal limits. PSYCH: Appropriate affect. Alert and oriented to person, place and time. SKIN: Good skin turgor. Well perfused. ASSESSMENT: 1. Morbid obesity due to excess calories 2. Body mass index of 43.9 to 40.2 3. Osteoarthritis of the lower back. 4. Depressive disorder 5. Bilateral lower extremity edema 6. Obstructive sleep apnea 7. Generalized anxiety disorder 8. Álvarez's esophagus 9. Gastroesophageal reflux disease 10. Diaphragmatic hiatal hernia s/p repair PLAN: 1. Recommend upper scope for re-evaluation for Álvarez's 2. She can complete her course of Omeprazole 3. Reocmmend [employer] pal for food tracking Objective - Vital Signs Vital signs: Vital Signs Temp 98.2 F 12/13/19 12:54 Pulse 76 12/13/19 12:54 Resp BP 120/80 12/13/19 12:54 Pulse Ox Intake & Output 12/12/19 12/13/19 12/13/19 18:59 06:59 18:59 Weight 92.533 kg
== END | disposition home or self-care (01) ==
LOC: BARWHC3 12:39
PROVIDERS: ATTEND Surgery Plastic and Reconstructive Surgery
DX: Z48.815 Encounter for surgical aftercare following surgery on the digestive system (principal); E66.01 Morbid (severe) obesity due to excess calories; M19.90 Unspecified osteoarthritis, unspecified site; F41.8 Other specified anxiety disorders; G47.33 Obstructive sleep apnea (adult) (pediatric); K22.70 Barrett's esophagus without dysplasia; K21.9 Gastro-esophageal reflux disease without esophagitis; R60.0 Localized edema; Z98.890 Other specified postprocedural states; Z68.41 Body mass index [BMI] 40.0-44.9, adult
CPT/HCPCS: 99211